=== PATIENT | male | born 1970 | race African-American/Black ===

== ENCOUNTER 2021-01-02 15:27 | Emergency (ER) | payer OTHER ==
[~2021-01-02] VITALS: Ht 190.5 cm; Wt 102.1 kg
[~2021-01-02 15:27] MED LIST: ACETAMINOPHEN325 M1 PO; CIPROFLOXACIN500 M1 PO; FLAGYL500 MG PO; IBUPROFEN 600600 M1 PO; NOHOMEMEDICATIONS; NORCO 5-325 TA1 EACH PO; PHENERGAN 25 MG25 M1 PO
[2021-01-02 15:54] LABS: BASOPHILS 0.4 % (0.0-2.0); EOSINOPHILS 3.6 % (0.0-3.0); HEMATOCRIT 42.9 % (42.0-52.0); HEMOGLOBIN 14.6 gm/dL (14.0-18.0); LYMPHOCYTES 13.5 % (24.0-44.0); MCH 30.3 pg (26.0-34.0); MCV 89.1 fL (80.0-100.0); MONOCYTES 16.8 % (1.0-8.0); PLATELET COUNT 152 thou/uL (150-400); POLYS 65.7 % (36.0-66.0); RBC 4.81 mil/uL (4.50-6.00); RDW 12.8 % (10.5-14.5)
[2021-01-02] MEDS ORDERED: ALLOPURINOL 30300 M1 PO (15:59)
[2021-01-02 16:13] LABS: CALCIUM 8.3 mg/dL (8.5-10.1); CREATININE 1.6 mg/dL (0.7-1.3); POTASSIUM 3.7 mmol/L (3.5-5.1)
[2021-01-02 16:16] LABS: ALBUMIN 3.9 g/dL (3.4-5.0); TOTAL BILIRUBIN 0.5 mg/dL (0.2-1.0); TOTAL PROTEIN 7.3 g/dL (6.4-8.2)
[2021-01-02] MEDS ORDERED: CIPROFLOXACIN500 M1 PO (17:06)
[2021-01-02] MEDS ORDERED: ZOFRAN ODT4 MG PO (17:06)
[2021-01-02 17:37] VITALS: BP 135/70
== END 2021-01-02 17:38 | disposition home or self-care (01) ==
LOC: ER 15:27
PROVIDERS: Emergency Medicine
DX: R11.2 Nausea with vomiting, unspecified (principal); R19.7 Diarrhea, unspecified; I10 Essential (primary) hypertension; Z90.49 Acquired absence of other specified parts of digestive tract; Z98.890 Other specified postprocedural states; Z79.899 Other long term (current) drug therapy; Z72.89 Other problems related to lifestyle